=== PATIENT | female | born 1970 | race Caucasian/White ===

== ENCOUNTER → 2019-09-24 | Outpatient (CLI) | payer OTHER ==
--- NOTE | 2019-09-24 11:41 | CT ---
EXAMINATION TYPE: CT brain wo/w con DATE OF EXAM: 09/24/2019 COMPARISON: None HISTORY: Headache CT DLP: 1121.5mGycm CONTRAST: CT scan of the head is performed without and with IV Contrast, patient injected with 100 mL of Isovue 300. Unenhanced followed by contrast enhanced CT of the brain is submitted for evaluation. The ventricles are midline. There is no evidence for intracranial hemorrhage or extra-axial collection. No mass e ffects are identified. Visualized bony calvarium is intact. Contrast is administered and no enhanci ng lesions are detected. No pathologic enhancement is identified. If symptoms persist consider MRI. IMPRESSION: Normal CT brain.
--- NOTE | 2019-09-24 11:43 | CT ---
EXAMINATION TYPE: CT soft tissue neck w con DATE OF EXAM: 09/24/2019 COMPARISON: None HISTORY: Neck pain CT DLP: 267.1 mGycm CONTRAST: CT scan of the neck is performed with IV Contrast, patient injected with 100 mL of Isovue 300. Contrast enhanced CT of the neck was performed from the skull base through the lung apices. AIRWAY: The supraglottic, glottic, and subglottic portions of the airway appear patent and free of mass. SALIVARY GLANDS: The submandibular and parotid glands are free of mass or inflammatory process. THYROID GLAND: Small subcentimeter left thyroid nodule is nonspecific. Correlate with ultrasound. LYMPH NODES: No adenopathy seen greater than 1cm. LUNG APICES: No nodule or mass is seen. OTHER: Vascular structures are patent. No significant degenerative change of the cervical spine. N o abscess seen. IMPRESSION: Small subcentimeter left thyroid nodule is nonspecific. Correlate with ultrasound.
--- NOTE | 2019-09-24 11:44 | CT ---
EXAMINATION TYPE: CT iac w con DATE OF EXAM: 09/24/2019 COMPARISON: None HISTORY: Lt ear hearing loss CT DLP: 150 mGycm Automated exposure control for dose reduction was used. CONTRAST: CT scan of the IACs is performed with IV Contrast, patient injected with 100 mL of Isovue 300. FINDINGS: The external auditory canals are patent bilaterally. Mastoid air cells show no evidence of abnormal opacification bilaterally. The middle ear ossicles are symmetric and unremarkable. There is no evidence of suspicious surrounding soft tissue density to suggest cholesteatoma. The scutum is preserved bilaterally. The cochlea and the semicircular canals are symmetric and unremarkable. Ves tibular aqueduct and internal carotid canal appear unremarkable. Temporomandibular joints are mainta ined bilaterally. Mild mucosal thickening maxillary sinuses. IMPRESSION: No significant abnormality seen to account for patient's symptoms.
== END | disposition home or self-care (01) ==
LOC: RADCTMAIN 09:14
PROVIDERS: ATTEND Nurse Practitioner Family
DX: H91.90 Unspecified hearing loss, unspecified ear (principal); R51 Headache; G52.9 Cranial nerve disorder, unspecified; E04.1 Nontoxic single thyroid nodule
CPT/HCPCS: 70481; 70491; 70470; Q9967

== ENCOUNTER 2019-12-26 11:59 | Emergency (ER) | payer OTHER ==
[2019-12-26 12:12] VITALS: BP 119/80; PULSE 76; RESP 18; TEMP 98
--- NOTE | 2019-12-26 13:05 | ED ---
Upper Extremity HPI - General Chief Complaint: Extremity Injury, Upper Stated Complaint: L Wrist Injury Time Seen by Provider: 12/26/19 12:14 Source: patient Mode of arrival: ambulatory Limitations: no limitations - History of Present Illness Initial Comments: Patient is a 49-year-old female presenting to the emergency Department with complaints of left wrist pain after falling yesterday. Patient states she slipped getting into the shower and landed on her left wrist. Patient states this morning she woke up and noticed more swelling and increasing pain so she decided to be seen. She denies hitting her head, loss of consciousness, vomiting. She denies any other injuries from this fall. He denies previous injuries to her left wrist. She has no other complaints. - Related Data Allergies Allergy/AdvReac Type Severity Reaction Status Date / Time No Known Allergies Allergy Verified 12/26/19 12:12 Review of Systems ROS Statement: Those systems with pertinent positive or pertinent negative responses have been documented in the HPI. ROS Other: All systems not noted in ROS Statement are negative. Past Medical History Past Medical History: Thyroid Disorder History of Any Multi-Drug Resistant Organisms: None Reported Past Surgical History: Section, Hernia Repair, Tonsillectomy Additional Past Surgical History / Comment(s): breast lift Past Psychological History: Depression Smoking Status: Current some day smoker Past Alcohol Use History: Occasional Past Drug Use History: Marijuana General Exam - General Exam Comments Initial Comments: GENERAL: Well-appearing, well-nourished and in no acute distress. HEAD: Atraumatic, normocephalic. EYES: Pupils equal round and reactive to light, extraocular movements intact, sclera anicteric, conjunctiva are normal. ENT: TMs normal, nares patent, oropharynx clear without exudates. Moist mucous membranes. NECK: Normal range of motion, supple without lymphadenopathy or JVD. LUNGS: Breath sounds clear to auscultation bilaterally and equal. No wheezes rales or rhonchi. HEART: Regular rate and rhythm without murmurs, rubs or gallops. ABDOMEN: Soft, nontender, normoactive bowel sounds. No guarding, no rebound. No masses appreciated. : Deferred EXTREMITIES: Tender to palpation of the left wrist, there is some mild swelling to the dorsal aspect. Tenderness in the snuffbox region. Patient has decreased range of motion secondary to pain. Pain of the left elbow or left shoulder. She is neurovascular intact. No clubbing or cyanosis. NEUROLOGICAL: Normal speech, normal gait. PSYCH: Normal mood, normal affect. SKIN: Warm, Dry, normal turgor, no rashes or lesions noted. Limitations: no limitations Course Vital Signs 12/26/19 12:07 Temperature 98 F Pulse Rate 76 Respiratory 18 Rate Blood Pressure 119/80 O2 Sat by Pulse 100 Oximetry Procedures - Orthopedic Splinting/Casting Injury #1 Side: left Upper Extremity Injury Location: wrist Upper Extremity Immobilizer: wrist splint, thumb spica, Erick wrap, synthetic pre- padded splint Medical Decision Making - Medical Decision Making Patient is a 49-year-old female here for left wrist pain after falling on it yesterday. X-rays reveal no acute fractures/dislocations. They did read a faint lucency involving the scaphoid area in only one of the views. Patient does have swelling and tenderness in the snuffbox area. Patient was placed in a thumb spica/wrist splint and will follow up with orthopedics. She is in agreement with this plan of care. Case discussed with Dr. Dumas. Disposition Clinical Impression: Left wrist pain Disposition: HOME SELF-CARE Condition: Stable Instructions (If sedation given, give patient instructions): Wrist Injury (ED) Additional Instructions: Please return to the Emergency Department if symptoms worsen or any other concerns. Follow-up with orthopedics as discussed. Keep splint in place until follow-up. Is patient prescribed a controlled substance at d/c from ED?: No Referrals: Mark Mcmanus MD [Primary Care Provider] - 1-2 days Sloan Glasgow MD [STAFF PHYSICIAN] - 1-2 days
--- NOTE | 2019-12-26 13:08 | XR ---
EXAMINATION TYPE: XR wrist complete LT DATE OF EXAM: 12/26/2019 COMPARISON: NONE HISTORY: Pain TECHNIQUE: Four views submitted. FINDINGS: The osseous structures are intact. The joint spaces are preserved and there is no acute fracture or dislocation. Soft tissue edema noted. Faint lucencies seen in the scaphoid view. IMPRESSION: 1. Faint lucency involving the waist of the scaphoid seen on only one view. Could be technical but re commend a follow-up CT of the wrist if the patient is point tender.
== END 2019-12-26 13:58 | disposition home or self-care (01) ==
LOC: EC 11:59
DX: M25.532 Pain in left wrist (principal); F17.200 Nicotine dependence, unspecified, uncomplicated
CPT/HCPCS: 29125; 99283

== ENCOUNTER 2022-04-04 08:29 | Emergency (ER) | payer BC, OTHER ==
[2022-04-04 08:37] VITALS: BP 111/74; PULSE 86; RESP 16; TEMP 98.2
--- NOTE | 2022-04-04 09:01 | ED ---
General Adult HPI - General Chief complaint: Extremity Problem,Nontraumatic Stated complaint: Right leg injury, Leg pain Time Seen by Provider: 04/04/22 08:47 Source: patient Mode of arrival: ambulatory Limitations: no limitations - History of Present Illness Initial comments: Dictation was produced using X[employer] dictation software. please excuse any grammatical, word or spelling errors. Chief Complaint: 51-year-old female presents to the emergency department for right knee pain History of Present Illness: 51-year-old female presents emergency department for right knee pain. Patient was climbing up a ladder when she twisted her knee. She states that her foot went into a supinated direction. Patient states that the pain is severe and located to the lateral and posterior knee. Painful with stepping. Patient has any complaints to the foot or calf area. She has been ambulating with crutches. Denies any swelling. Event occurred approximately 14 hours ago. The ROS documented in this emergency department record has been reviewed and confirmed by me. Those systems with pertinent positive or negative responses have been documented in the HPI. All other systems are other negative and/or noncontributory. PHYSICAL EXAM: General Impression: Alert and oriented x3, not in acute distress HEENT: Normocephalic atraumatic, extra-ocular movements intact, pupils equal and reactive to light bilaterally, mucous membranes moist. Cardiovascular: Heart regular rate and rhythm Chest: Able to complete full sentences, no retractions, no tachypnea Musculoskeletal: Pulses present and equal in all extremities, no peripheral edema Motor: no focal deficits noted Right knee: No gross deformities, mild palpatory tenderness elicited with plantarflexion and manipulation of the right knee, no pain reproduced with plantar extension. No knee effusion Neurological: CN II-XII grossly intact, no focal motor or sensory deficits noted Skin: Intact with no visualized rashes Psych: Normal affect and mood ED course: 51-year-old female presents to emergency department clinical presentation consistent with a right knee strain. Vital signs upon arrival are within acceptable limits. Knee x-rays unremarkable for occult fracture. Patient has crutches. She is given knee immobilizer and referral to orthopedic surgery. - Related Data Allergies Allergy/AdvReac Type Severity Reaction Status Date / Time No Known Allergies Allergy Verified 04/04/22 08:36 Review of Systems ROS Statement: Those systems with pertinent positive or pertinent negative responses have been documented in the HPI. ROS Other: All systems not noted in ROS Statement are negative. Past Medical History Past Medical History: Thyroid Disorder History of Any Multi-Drug Resistant Organisms: None Reported Past Surgical History: Section, Hernia Repair, Tonsillectomy Additional Past Surgical History / Comment(s): breast lift Past Psychological History: Depression Smoking Status: Current every day smoker Past Alcohol Use History: Occasional Past Drug Use History: Marijuana General Exam Limitations: no limitations Course Vital Signs 04/04/22 08:34 Temperature 98.2 F Pulse Rate 86 Respiratory 16 Rate Blood Pressure 111/74 O2 Sat by Pulse 98 Oximetry Disposition Clinical Impression: Knee strain Disposition: HOME SELF-CARE Condition: Good Instructions (If sedation given, give patient instructions): Knee Pain (ED) Is patient prescribed a controlled substance at d/c from ED?: No Referrals: Krystian Patterson DO [Doctor of Osteopathic Medicine] - 1-2 days Time of Disposition: 09:48
--- NOTE | 2022-04-04 09:23 | XR ---
EXAMINATION TYPE: XR knee complete RT DATE OF EXAM: 04/04/2022 COMPARISON: NONE HISTORY: Knee pain TECHNIQUE: Frontal, lateral and oblique images of the right ankle are obtained. COMPARISON: None. FINDINGS: There is no acute fracture/dislocation evident. The joint spaces appear within normal [place] its. No joint effusion. The overlying soft tissue appears unremarkable. IMPRESSION: No acute fracture or dislocation seen.
== END 2022-04-04 10:03 | disposition home or self-care (01) ==
LOC: EC 08:29
DX: S86.911A Strain of unspecified muscle(s) and tendon(s) at lower leg level, right leg, initial encounter (principal); E07.9 Disorder of thyroid, unspecified; F17.200 Nicotine dependence, unspecified, uncomplicated; X50.1XXA Overexertion from prolonged static or awkward postures, initial encounter; Y93.39 Activity, other involving climbing, rappelling and jumping off
CPT/HCPCS: 73562; 99283; L1830 ×2

== ENCOUNTER 2024-07-16 10:03 | Observation (INO) | payer BC ==
[2024-07-16 10:20] VITALS: TEMP 98.1
[2024-07-16 10:45] LABS: Basophils % (A) 0 %; Eosinophils # (A) 0.1 k/uL (0-0.7); Eosinophils % (A) 1 %; HCT 43.2 % (34.0-46.0); HGB 14.4 gm/dL (11.4-16.0); Lymphocytes # (A) 1.6 k/uL (1.0-4.8); Lymphocytes % (A) 15 %; MCH 31.2 pg (25.0-35.0); MCHC 33.3 g/dL (31.0-37.0); Mean Platelet Volume 7.4; Monocytes # (A) 0.5 k/uL (0-1.0); Monocytes % (A) 4 %; Neutrophils # (A) 8.5 k/uL (1.3-7.7); Neutrophils % (A) 79 %; Platelet Count 234 k/uL (150-450); RDW 11.3 % (11.5-15.5); WBC 10.7 k/uL (3.8-10.6)
[2024-07-16 10:54] LABS: ALT 17 U/L (4-34); AST 20 U/L (14-36); African American GFR (CKD) 85 (>60 ml/min/1.73 sqM); Albumin 4.2 g/dL (3.5-5.0); Alkaline Phosphatase 61 U/L (38-126); Anion Gap 5 mmol/L; Blood Urea Nitrogen 16 mg/dL (7-17); Calcium 9.1 mg/dL (8.4-10.2); Carbon Dioxide 22 mmol/L (22-30); Chloride 110 mmol/L (98-107); Glucose 101 mg/dL (74-99); Non-African American GFR(CKD) 74 (>60 ml/min/1.73 sqM); Potassium 4.1 mmol/L (3.5-5.1); Sodium 137 mmol/L (137-145); Total Bilirubin 0.6 mg/dL (0.2-1.3); Total Protein 6.6 g/dL (6.3-8.2)
[2024-07-16 10:57] LABS: Partial Thromboplastin Time 23.7 sec (22.0-30.0)
--- NOTE | 2024-07-16 11:03 | ED ---
Chest Pain HPI - General Source: patient, RN notes reviewed Mode of arrival: ambulatory Limitations: no limitations - History of Present Illness MD Complaint: chest pain <TeriCarlos palmerAmi - Last Filed: 07/16/24 11:02> - General Source: patient, RN notes reviewed Mode of arrival: ambulatory Limitations: no limitations <Krystian Max - Last Filed: 07/16/24 12:48> - General Chief Complaint: Chest Pain Stated Complaint: Chest pain Time Seen by Provider: 07/16/24 10:50 - History of Present Illness Initial Comments: Quick Note: This is a 53-year-old female who presents to the emergency department for chest pain. States that it started 2 days ago. Pain is centralized. She has some associated shortness of breath. Denies any history of heart attacks. (Ami Self) Is a 53-year-old female presents emergency department with chief complaint of chest pain. Patient states that started yesterday it is centralized substernal chest pain does radiate to her back she has minimal shortness of breath. Patient states that she has no prior cardiac disease there is maybe some family heart disease. Patient denies any leg pain or leg swelling no history of DVT or PE. Symptoms are worse with some exertion (Krystian Max) - Related Data Allergies Allergy/AdvReac Type Severity Reaction Status Date / Time No Known Allergies Allergy Verified 07/16/24 10:20 Review of Systems ROS Other: All systems not noted in ROS Statement are negative. <Ami Self - Last Filed: 07/16/24 11:02> ROS Other: All systems not noted in ROS Statement are negative. <Krystian Max - Last Filed: 07/16/24 12:48> ROS Statement: Those systems with pertinent positive or pertinent negative responses have been documented in the HPI. EKG Findings - EKG Comments: EKG Findings:: He was born at 10: 27 sinus rhythm with rate of 89 AL 112 QRS 77 QT/QTc 341/387 - EKG Results: EKG: interpreted by ERMD <Krystian Max - Last Filed: 07/16/24 12:48> Past Medical History Past Medical History: Thyroid Disorder History of Any Multi-Drug Resistant Organisms: None Reported Past Surgical History: Section, Hernia Repair, Tonsillectomy Additional Past Surgical History / Comment(s): breast lift Past Psychological History: Anxiety, Depression Smoking Status: Current every day smoker Past Alcohol Use History: Occasional Past Drug Use History: Marijuana <Ami Self - Last Filed: 07/16/24 11:02> General Exam Limitations: no limitations <Ami Self - Last Filed: 07/16/24 11:02> General appearance: alert, in no apparent distress Head exam: Present: atraumatic, normocephalic, normal inspection Eye exam: Present: normal appearance, PERRL, EOMI. Absent: scleral icterus, conjunctival injection, periorbital swelling ENT exam: Present: normal exam, normal oropharynx, mucous membranes moist Neck exam: Present: normal inspection, full ROM. Absent: tenderness, meningismus, lymphadenopathy Respiratory exam: Present: normal lung sounds bilaterally. Absent: respiratory distress, wheezes, rales, rhonchi, stridor Cardiovascular Exam: Present: regular rate, normal rhythm, normal heart sounds. Absent: systolic murmur, diastolic murmur, rubs, gallop, clicks Neurological exam: Present: alert, oriented X3 <Krystian Max - Last Filed: 07/16/24 12:48> - General Exam Comments Initial Comments: Visual Physical Exam Vital signs reviewed General: Well-appearing, nontoxic, no acute distress. Head: Normocephalic, atraumatic Eyes: PERRLA, EOMI ENT: Airway patent Chest: Nonlabored breathing Skin: No visual rash, normal skin tone Neuro: Alert and oriented 3 Musculoskeletal: No gross abnormalities (Ami Self) Course Vital Signs 07/16/24 10:18 Temperature 98.1 F Pulse Rate 55 L Respiratory 20 Rate Blood Pressure 121/81 O2 Sat by Pulse 96 Oximetry Chest Pain [facility] <Ami Self - Last Filed: 07/16/24 11:02> <Krystian Max - Last Filed: 07/16/24 12:48> - [facility] I performed the QuickNote portion of this chart. Signed Ami Self PA-C. (Ami Self) Was pt. sent in by a medical professional or institution (, [facility], [employer], urgent care, hospital, or longterm...) When possible be specific @ -No Did you speak to anyone other than the patient for history (EMS, parent, family, police, friend...)? What history was obtained from this source @ -No Did you review nursing and triage notes (agree or disagree)? Why? @ -I reviewed and agree with nursing and triage notes Were old charts reviewed (outside hosp., previous admission, EMS record, old EKG, old radiological studies, urgent care reports/EKG's, longterm records)? Report findings @ -No old charts were reviewed Differential Diagnosis (chest pain, altered mental status, abdominal pain women, abdominal pain men, vaginal bleeding, weakness, fever, dyspnea, syncope, headache, dizziness, GI bleed, back pain, seizure, CVA, palpatations, mental health, musculoskeletal)? @ -Differential Chest Pain: Stable Angina, Unstable Angina, STEMI, NSTEMI Aortic Dissection, Pneumothorax, Musculoskeletal, Esophageal Spasm GERD, Cholecystitis, Pancreatitis, Zoster, this is not meant to be an all-inclusive list. EKG interpreted by me (3pts min.). @ -As above X-rays interpreted by me (1pt min.). @ -Chest x-ray shows no acute cardiopulmonary process CT interpreted by me (1pt min.). @ -None done U/S interpreted by me (1pt. min.). @ -None done What testing was considered but not performed or refused? (CT, X-rays, U/S, labs)? Why? @ -None What meds were considered but not given or refused? Why? @ -None Did you discuss the management of the patient with other professionals (professionals i.e. , PA, [employer], lab, RT, psych nurse, social science professor, claim rep, teacher, environmental compliance officer, director case management)? Give summary @ -Sound physician for admission Was smoking cessation discussed for >3mins.? @ -No Was critical care preformed (if so, how long)? @ -No Were there social determinants of health that impacted care today? How? (Home lessness, low income, unemployed, alcoholism, drug addiction, transportation, low edu. Level, literacy, decrease access to med. care, retirement, rehab)? @ -No Was there de-escalation of care discussed even if they declined (Discuss DNR or withdrawal of care, Hospice)? DNR status @ -No What co-morbidities impacted this encounter? (DM, HTN, Smoking, COPD, CAD, Cancer, CVA, ARF, Chemo, Hep., AIDS, mental health diagnosis, sleep apnea, morbid obesity)? @ -None Was patient admitted / discharged? Hospital course, mention meds given and route, prescriptions, significant lab abnormalities, going to OR and other pertinent info. @ -Admitted patient presented for concerning ACS symptoms. Patient is troponin is negative. Patient will be admitted for cardiac rule out repeat troponin, echocardiogram and cardiology evaluation Undiagnosed new problem with uncertain prognosis? @ -No Drug Therapy requiring intensive monitoring for toxicity (Heparin, Nitro, Insulin, Cardizem)? @ -No Were any procedures done? @ -No Diagnosis/symptom? @ -Chest pain Acute, or Chronic, or Acute on Chronic? @ -Acute Uncomplicated (without systemic symptoms) or Complicated (systemic symptoms)? @ -complicated Side effects of treatment? @ -No Exacerbation, Progression, or Severe Exacerbation? @ -No Poses a threat to life or bodily function? How? (Chest pain, [place], [place], pneumonia, PE, COPD, DKA, ARF, appy, cholecystitis, CVA, Diverticulitis, Homicidal, Suicidal, threat to staff... and all critical care pts) @ -Yes possible underlying ACS may cause cardiac arrest (Krystian Max) Disposition <Ami Self - Last Filed: 07/16/24 11:02> Time of Disposition: 12:43 <Krystian Max - Last Filed: 07/16/24 12:48> Clinical Impression: Chest pain Disposition: ADMITTED IP TO THIS HOSP Condition: Fair Referrals: Araceli Cruz MD [Primary Care Provider] - 1-2 days
--- NOTE | 2024-07-16 11:05 | XR ---
EXAMINATION TYPE: XR chest 2V DATE OF EXAM: 07/16/2024 11:02 AM COMPARISON: None. CLINICAL INDICATION: Female, 53 years old with history of Chest Pain, TECHNIQUE: Frontal and lateral views of the chest are obtained. FINDINGS: There is no focal air space opacity, pleural effusion, or pneumothorax seen. The cardiac silhouette size is within normal limits. The osseous structures are intact. IMPRESSION: No acute cardiopulmonary process. [facility], , 07/16/2024 11:03 AM
[2024-07-16] MEDS ORDERED: NITROGLYCERIN SL TABS 0.4 MG TAB SUBLINGUAL PRN (12:43)
[2024-07-16] MEDS ORDERED: NALOXONE 0.4 MG/ML 1 ML VIAL IVP PRN (15:47)
[2024-07-16] MEDS ORDERED: ACETAMINOPHEN TAB 325 MG TAB PO PRN (15:48)
[2024-07-16] MEDS ORDERED: NICOTINE GUM (POLACRILEX) 2 MG GUM BUCCAL PRN (15:48)
[2024-07-16] MEDS: ASPIRIN 81 MG PO STA (17:05)
[2024-07-16] MEDS: NICOTINE 14MG/24HR PATCH TRANSDERM SCH (17:06)
[2024-07-16 19:00] VITALS: BP 115/79; PULSE 88; RESP 16
--- NOTE | 2024-07-16 19:28 | P.HPIM ---
History of Present Illness H&P Date: 07/16/24 Patient is a 53-year-old female with a past medical history of hypothyroidism presented to the ED with complaints of chest pain. She states that it started 07/12 and is substernal that radiates to her back and left axilla. At first she thought it was muscular pain but it has not gone away. She states that sometimes it feels like she is going into a panic attack and some chest pain episodes last just a few minutes and some last 12 hours. She describes the chest pain as sharp but intermittent. She endorses associated dizziness, dyspnea, tachycardia, numbness and tingling in the left arm/face this morning. She denies diaphoresis and headache. She notes that stress and caffeine make the pain worse. She states that the chest pain was a 5/10 but is currently a 0/10 but endorses current tenderness to palpation of the left chest. She currently denies dyspnea, abdominal pain, nausea, vomiting, fever, chills, chest pain. Initial EKG independently interpreted as sinus rhythm. Initial chest x-ray: No acute cardiopulmonary process. Initial labs: WBC 10.7, hemoglobin 14.4, hematocrit 43.2, PT 11, INR 1, APTT 23.7, sodium 137, potassium 4.1, chloride 110, BUN 16, creatinine 0.9, glucose 101, calcium 9.1, magnesium 2, troponin X2 <0.012. Initial vitals: T 98.1, VA 55 bpm, RR 20, BP 121/81, O2 sat 96% on room air. ED documentation reviewed. Review of systems: Pertinent positives and negatives as discussed in HPI, a complete review of systems was performed and all other systems are negative. Social history: Tobacco: Current everyday about 1 pack/week since the age of 16 Alcohol: Occasional4 drinks per week Recreational drugs: Marijuana 3x per week Travel: None reported Sick contacts: None reported Physical examination: Vital signs reviewed General: Nontoxic, no distress, appears stated age, well-appearing Derm: Warm, dry, intact Head: Atraumatic, normocephalic, symmetric Eyes: EOMI, anicteric sclera Mouth: No lip lesion, mucus membranes moist Cardiovascular: S1-S2 regular, no murmur Lungs: CTA bilateral, no rhonchi, no rales, no accessory muscle use Abdominal: Soft, non-tender to palpation Extremities: No cyanosis, clubbing, or pedal edema Neuro: Alert, oriented x 3, gross neurological examination did not reveal any focal deficits. Cranial nerves II to XII grossly intact. Psych: Appropriate affect and mood Assessment and Plan: Patient is a 53-year-old female with a past medical history significant for hypothyroidism who was admitted for chest pain. Active #. Chest pain, currently resolved, unlikely ACS Troponin x 3 Aspirin 81 mg PO daily Lipitor 80 mg PO nightly Metoprolol 12.5 mg PO twice daily Lipid panel TSH with reflex BMP CBC A1c Magnesium Chronic #. Hypothyroidism [place] thyroid 60 milligrams PO daily DVT prophylaxis: Lovenox subcutaneous 40 mg daily The patient is admitted with an anticipated less than 2 midnight stay for evaluation of chest pain. CODE STATUS: Full code Discussed with: Dr. Chahal Anticipated discharge place: Home I saw and evaluated the patient during the childers and critical portions of this encounter, and discussed the case in detail with the resident author of this note, I agree with the Assessment and Plan, and my changes, if any, are highlighted in blue. Patient's mace risk is very low considering her heart score is only 2. This was based on initial troponin being negative, lowly suspicious story considering atypical chest pain that resolved without medication, only 2 risk factors which include smoking and positive family history. Therefore, patient was counseled on the following: Instructions on when to return to the emergency room, should her chest pain return, as well as instructions to follow-up with her primary care physician as well as shirt sorter. Of note, patient has had multiple stress test in the past involving negative according to her history. Patient should quit smoking. Prescription for nitroglycerin will be sent, please see our same-day discharge summary for further details. Past Medical History Past Medical History: Thyroid Disorder History of Any Multi-Drug Resistant Organisms: None Reported Past Surgical History: Section, Hernia Repair, Tonsillectomy Additional Past Surgical History / Comment(s): breast lift Past Psychological History: Anxiety, Depression Smoking Status: Current every day smoker Past Alcohol Use History: Occasional Past Drug Use History: Marijuana Medications and Allergies Home Medications Medication Instructions Recorded Confirmed Type Acetaminophen Tab [Tylenol] 650 mg PO Q6HR PRN tab 07/16/24 Rx Ascorbic Acid [Vitamin C] 1,000 mg PO DAILY@1300 07/16/24 07/16/24 History Multivitamins, Thera [Multivitamin 1 tab PO DAILY@1300 07/16/24 07/16/24 History (formulary)] Nitroglycerin Sl Tabs [Nitrostat] 0.4 mg SUBLINGUAL Q5M PRN #5 tab 07/16/24 Rx [place]-3/Dha/Epa/Fish Oil [[place]-3 1 cap PO DAILY@1300 07/16/24 07/16/24 History Fish Oil 1,000 mg Sfgl] Selenium 100 mcg PO DAILY@1300 07/16/24 07/16/24 History Thyroid,Pork [[place] Thyroid] 60 mg PO DAILY 07/16/24 07/16/24 History Zinc Gluconate [Zinc] 50 mg PO DAILY@1300 07/16/24 07/16/24 History Allergies Allergy/AdvReac Type Severity Reaction Status Date / Time No Known Allergies Allergy Verified 07/16/24 16:52 Physical Exam Osteopathic Statement: *. No significant issues noted on an osteopathic structural exam other than those noted in the History and Physical/Consult. Vitals: Vital Signs Temp Pulse Resp BP Pulse Ox 07/16/24 10:18 98.1 F 55 L 20 121/81 96 Intake and Output 07/15/24 07/16/24 07/16/24 22:59 06:59 14:59 Other: Weight 68.039 kg Results CBC & Chem 7: 07/16/24 10:31 07/16/24 10:31 Labs: Abnormal Lab Results - Last 24 Hours (Table) 07/16/24 07/16/24 Range/Units 10:31 10:31 WBC 10.7 H (3.8-10.6) k/uL RDW 11.3 L (11.5-15.5) % Neutrophils # 8.5 H (1.3-7.7) k/uL Chloride 110 H (98-107) mmol/L Glucose 101 H (74-99) mg/dL
--- NOTE | 2024-07-16 19:32 | P.DS ---
Providers Date of admission: 07/16/24 12:52 Attending physician: Segundo Villeda Consults: 07/16/24 12:43 Consult Physician Urgent Consulting Provider: Osiel Marcus Consult Reason/Comments: chest pain Do you want consulting provider notified?: Yes Primary care physician: Araceli Cruz MD Hospital Course: Hospital Course: Patient is a 53-year-old female with a past medical history of hypothyroidism presented to the ED with complaints of chest pain. She states that it started 07/12 and is substernal that radiates to her back and left axilla. At first she thought it was muscular pain but it has not gone away. She states that sometimes it feels like she is going into a panic attack and some chest pain episodes last just a few minutes and some last 12 hours. She describes the chest pain as sharp but intermittent. She endorses associated dizziness, dyspnea, tachycardia, numbness and tingling in the left arm/face this morning. She denies diaphoresis and headache. She notes that stress and caffeine make the pain worse. She states that the chest pain was a 5/10 but is currently a 0/10 but endorses current tenderness to palpation of the left chest. She currently denies dyspnea, abdominal pain, nausea, vomiting, fever, chills, chest pain. Initial EKG independently interpreted as sinus rhythm. Initial chest x- ray: No acute cardiopulmonary process. Initial labs: WBC 10.7, hemoglobin 14.4, hematocrit 43.2, PT 11, INR 1, APTT 23.7, sodium 137, potassium 4.1, chloride 110, BUN 16, creatinine 0.9, glucose 101, calcium 9.1, magnesium 2, troponin X2 <0.012. Initial vitals: T 98.1, [place] 55 bpm, RR 20, BP 121/81, O2 sat 96% on room air. Patient is medically stable for discharge. HEART Score is 2, portending low risk of MACE. Patient was carefully instructed to follow up with her lab engineer and PCP as early as possible but definitely within 1 week for further testing as appropriate. She should make a follow-up appointment with primary care provider and outpatient lab engineer. Prescription written for nitroglycerin sublingual #5 Tablets with the following instructions: If experiencing chest pain, dissolve 1 tablet under the tongue and take four (4) 81 mg aspirin tablets. Patient was counseled that if chest pain is present please return to the emergency department. Final Diagnosis: #. Chest pain #. Hypothyroidism Physical examination: Vital signs reviewed General: Nontoxic, no distress, appears stated age, well-appearing Derm: Warm, dry, intact Head: Atraumatic, normocephalic, symmetric Eyes: EOMI, anicteric sclera Mouth: No lip lesion, mucus membranes moist Cardiovascular: S1-S2 regular, no murmur Lungs: CTA bilateral, no rhonchi, no rales, no accessory muscle use Abdominal: Soft, non-tender to palpation Extremities: No cyanosis, clubbing, or pedal edema Neuro: Alert, oriented x 3, gross neurological examination did not reveal any focal deficits. Cranial nerves II to XII grossly intact. I saw and evaluated the patient during the childers and critical portions of this encounter, and discussed the case in detail with the resident author of this note, I agree with the Assessment and Plan, and my changes, if any, are highlighted in blue. Patient Condition at Discharge: Stable Plan - Discharge Summary New Discharge Prescriptions: New Nitroglycerin Sl Tabs [Nitrostat] 0.4 mg SUBLINGUAL Q5M PRN #5 tab PRN Reason: Chest Pain Acetaminophen Tab [Tylenol] 650 mg PO Q6HR PRN tab PRN Reason: Mild Pain Or Fever > 100.5 Continue Ascorbic Acid [Vitamin C] 1,000 mg PO DAILY@1300 Thyroid,Pork [[place] Thyroid] 60 mg PO DAILY Zinc Gluconate [Zinc] 50 mg PO DAILY@1300 Multivitamins, Thera [Multivitamin (formulary)] 1 tab PO DAILY@1300 Selenium 100 mcg PO DAILY@1300 [place]-3/Dha/Epa/Fish Oil [[place]-3 Fish Oil 1,000 mg Sfgl] 1 cap PO DAILY@1300 Discharge Medication List Acetaminophen Tab [Tylenol] 650 mg PO Q6HR PRN tab 07/16/24 [Rx] Ascorbic Acid [Vitamin C] 1,000 mg PO DAILY@1300 07/16/24 [History] Multivitamins, Thera [Multivitamin (formulary)] 1 tab PO DAILY@1300 07/16/24 [History] Nitroglycerin Sl Tabs [Nitrostat] 0.4 mg SUBLINGUAL Q5M PRN #5 tab 07/16/24 [Rx] [place]-3/Dha/Epa/Fish Oil [[place]-3 Fish Oil 1,000 mg Sfgl] 1 cap PO DAILY@1300 07/16/24 [History] Selenium 100 mcg PO DAILY@1300 07/16/24 [History] Thyroid,Pork [[place] Thyroid] 60 mg PO DAILY 07/16/24 [History] Zinc Gluconate [Zinc] 50 mg PO DAILY@1300 07/16/24 [History] Follow up Appointment(s)/Referral(s): Araceli Cruz MD [Primary Care Provider] - 1-2 days Patient Instructions/Handouts: Chest Pain (DC) Activity/Diet/Wound Care/Special Instructions: Please see primary care provider and lab engineer. If having chest pain, dissolve 1 nitroglycerin tablet under the tongue and take FOUR 81mg Aspirin tablets. If the chest pain resolves with the nitroglycerin tablet, please return to the emergency department. Discharge Disposition: HOME SELF-CARE
[2024-07-16] MEDS ORDERED: ATORVASTATIN 80 MG TAB PO SCH (21:00)
[2024-07-16] MEDS ORDERED: METOPROLOL TARTRATE 12.5 MG TAB PO SCH (21:00)
[2024-07-17] MEDS ORDERED: ASPIRIN 325 MG TAB PO SCH (09:00)
[2024-07-17] MEDS ORDERED: ASPIRIN 81 MG PO SCH (09:00)
== END 2024-07-16 18:30 | disposition home or self-care (01) ==
LOC: EC 10:03 → 6NMEDSUR 12:52
PROVIDERS: ADMIT Student in an Organized Health Care Education/Training Program; ATTEND Student in an Organized Health Care Education/Training Program
DX: R00.0 Tachycardia, unspecified (principal); E03.9 Hypothyroidism, unspecified; R20.0 Anesthesia of skin; R20.2 Paresthesia of skin; F17.210 Nicotine dependence, cigarettes, uncomplicated; Z79.82 Long term (current) use of aspirin; Z79.899 Other long term (current) drug therapy; Z79.890 Hormone replacement therapy
CPT/HCPCS: 99285; 36415; 93005; 80053; 83735; 84484; 85025; 85610; 85730; 71046; G0378